=== PATIENT | male | born 1980 | race Caucasian/White ===

== ENCOUNTER 2023-12-26 17:42 | Emergency (ER) | payer MEDICAID ==
[~2023-12-26] VITALS: Ht 175.3 cm; Wt 70.0 kg
[2023-12-26 18:31] VITALS: O2SAT 100
[2023-12-26 19:28] LABS: HEMATOCRIT. 51.8 % (42.0-52.0); HEMOGLOBIN. 16.8 g/dL (14.0-18.0); MEAN CORPUSCULAR HEMOGLOBIN 29.1 pg (28.0-32.0); MEAN CORPUSCULAR HGB CONC 32.5 g/dL (31.0-37.0); MEAN CORPUSCULAR VOLUME 89.6 fL (80.0-94.0); MEAN PLATELET VOLUME 10.9 fl (7.4-10.4); PLATELET 191 x1000/uL (130-400); RED BLOOD CELL COUNT 5.78 mill/uL (4.7-6.1); WHITE BLOOD COUNT 27.4 x1000/uL (4.5-11.0)
[2023-12-26 19:31] LABS: DIFFERENTIAL COMMENT 1
[2023-12-26 19:33] LABS: CHLORIDE 91 mEq/L (98-107); POTASSIUM 3.9 mEq/L (3.5-5.1); SODIUM 137 mEq/L (136-145)
[2023-12-26 19:35] LABS: CARBON DIOXIDE 30 mEq/L (21-32)
[2023-12-26 19:36] LABS: CALCIUM 11.8 mg/dL (8.7-10.4)
[2023-12-26 19:40] LABS: GLUCOSE 147 mg/dL (70-105)
[2023-12-26 19:41] LABS: UREA NITROGEN BLOOD 38 mg/dL (9-23)
[2023-12-26 19:42] LABS: ALANINE AMINOTRANSFERASE 38 IU/L (10-49); ASPARTATE AMINOTRANSFERASE 76 IU/L (<34)
[2023-12-26 19:43] LABS: BILIRUBIN DIRECT 0.5 mg/dL (<=3.0); BILIRUBIN TOTAL 1.6 mg/dL (0.1-1.0); PROTEIN TOTAL 9.6 g/dL (6.0-8.3)
[2023-12-26 19:50] LABS: PLATELET ESTIMATE NORMAL
[2023-12-26 19:53] LABS: CREATININE 5.6 mg/dL (0.6-1.3)
[2023-12-26] MEDS: ONDANSETRON HCL 4MG/2ML INJ IV ONE (21:51)
[2023-12-26] MEDS: CEFTRIAXONE 1GM/50ML 50 ML IV NR (21:57)
[2023-12-26 22:33] VITALS: BP 114/79; PULSE 78; RESP 16; TEMP 98
[2023-12-26 23:02] LABS: TROPONIN I HIGH SENSITIVITY 387 ng/L (3.0-53)
[2023-12-26 23:19] LABS: HEMATOCRIT 50.5 % (42.0-52.0); MEAN CORPUSCULAR HEMOGLOBIN 29.8 pg (28.0-32.0); MEAN CORPUSCULAR HGB CONC 33.6 g/dL (31.0-37.0); MEAN CORPUSCULAR VOLUME 88.6 fL (80.0-94.0); PLATELET 168 x1000/uL (130-400); RED CELL DISTRIBUTION WIDTH 13.9 % (11.6-14.6); WHITE BLOOD COUNT 24.4 x1000/uL (4.5-11.0)
[2023-12-26] MEDS: AZITHROMYCIN 500MG/250ML 250 ML IV SCH (23:52)
== END 2023-12-27 00:50 | disposition left against medical advice (07) ==
LOC: ER 17:42 → EDBEDREQTM 23:09 → EDBEDREQ 23:09 → ER 12-27 00:50
DX: D72.829 Elevated white blood cell count, unspecified (principal)
CPT/HCPCS: 80076; 80048; 83690; 85027; 85025; 84484; 36415; 71045; 93005; 96367; 96365; 96375; 99285; J0456; J0696; J2405; Z7610 ×2

== ENCOUNTER 2024-04-22 01:01 | Emergency (ER) | payer MEDICAID ==
[~2024-04-22] VITALS: Ht 177.8 cm; Wt 69.0 kg
[2024-04-22] MEDS ORDERED: PANTOPRAZOLE SODIUM 40 MG/VIAL IV STA (01:09)
[2024-04-22] MEDS ORDERED: ONDANSETRON HCL 4MG/2ML INJ IV STA (01:09)
[2024-04-22] MEDS ORDERED: SODIUM CHLORIDE 0.9% 1,000 ML IV ONE (01:15)
[2024-04-22] MEDS ORDERED: KETOROLAC 15MG/ML VIAL IV ONE (01:15)
[2024-04-22 01:16] VITALS: BP 133/77; PULSE 71; RESP 16; TEMP 97.7; O2SAT 99
[2024-04-22 02:16] LABS: PROTHROMBIN TIME 10.7 sec (9.6-11.0)
[2024-04-22 02:34] LABS: HEMATOCRIT. 43.3 % (42.0-52.0); HEMOGLOBIN. 14.4 g/dL (14.0-18.0); MEAN CORPUSCULAR HEMOGLOBIN 30.8 pg (28.0-32.0); MEAN CORPUSCULAR HGB CONC 33.3 g/dL (31.0-37.0); MEAN CORPUSCULAR VOLUME 92.5 fL (80.0-94.0); PLATELET 159 x1000/uL (130-400); RED BLOOD CELL COUNT 4.68 mill/uL (4.7-6.1); RED CELL DISTRIBUTION WIDTH 13.1 % (11.6-14.6); WHITE BLOOD COUNT 17.4 x1000/uL (4.5-11.0)
[2024-04-22 02:47] LABS: CHLORIDE 105 mEq/L (98-107); POTASSIUM 3.7 mEq/L (3.5-5.1); SODIUM 139 mEq/L (136-145)
[2024-04-22 02:48] LABS: CALCIUM 10.4 mg/dL (8.7-10.4); CARBON DIOXIDE 23 mEq/L (21-32)
[2024-04-22 02:53] LABS: CREATININE 1.3 mg/dL (0.6-1.3); GLUCOSE 125 mg/dL (70-105); UREA NITROGEN BLOOD 17 mg/dL (9-23)
[2024-04-22 02:55] LABS: ALANINE AMINOTRANSFERASE 15 IU/L (10-49); ALBUMIN 5.1 g/dL (3.2-4.8); ASPARTATE AMINOTRANSFERASE 25 IU/L (<34); BILIRUBIN DIRECT 0.3 mg/dL (<=3.0); BILIRUBIN TOTAL 1.1 mg/dL (0.1-1.0); PROTEIN TOTAL 7.6 g/dL (6.0-8.3)
[2024-04-22 03:40] LABS: DIFFERENTIAL COMMENT 1
[2024-04-22 03:43] LABS: ETHANOL BLOOD < 10 mg/dL (<10)
[2024-04-22 10:43] LABS: PLATELET ESTIMATE NORMAL
== END 2024-04-22 02:15 | disposition left against medical advice (07) ==
LOC: ER 01:11
DX: R10.10 Upper abdominal pain, unspecified (principal); R11.2 Nausea with vomiting, unspecified; Z00.00 Encounter for general adult medical examination without abnormal findings
CPT/HCPCS: 80076; 80048; 80320; 83690; 85025; 85610; 36415; 71045; 93005; 99285; J7030; G0480

== ENCOUNTER 2024-04-22 03:15 | Emergency (ER) | payer MEDICAID ==
[~2024-04-22] VITALS: Ht 167.6 cm; Wt 56.0 kg
[2024-04-22] MEDS ORDERED: MAGNESIUM/ALUMINUM HYDROXIDE/SIMETHICONE 30ML UDC PO STA (03:20)
[2024-04-22] MEDS ORDERED: KETOROLAC 30MG/ML VIAL IV NR (03:20)
[2024-04-22] MEDS ORDERED: PANTOPRAZOLE SODIUM 40 MG/VIAL IV STA (03:20)
[2024-04-22] MEDS ORDERED: ONDANSETRON HCL 4MG/2ML INJ IV STA (03:20)
[2024-04-22] MEDS ORDERED: MAGNESIUM/ALUMINUM HYDROXIDE/SIMETHICONE 30ML UDC PO NR (03:30)
[2024-04-22] MEDS ORDERED: PANTOPRAZOLE SODIUM 40 MG/VIAL IV NR (03:30)
[2024-04-22] MEDS ORDERED: SODIUM CHLORIDE 0.9% 1,000 ML IV ONE (03:30)
[2024-04-22] MEDS ORDERED: ONDANSETRON HCL 4MG/2ML INJ IV NR (03:30)
[2024-04-22 03:54] VITALS: BP 120/52; PULSE 50; RESP 14; TEMP 98.2; O2SAT 100
[2024-04-22 04:13] LABS: HEMATOCRIT. 43.8 % (42.0-52.0); HEMOGLOBIN. 14.5 g/dL (14.0-18.0); MEAN CORPUSCULAR HEMOGLOBIN 30.6 pg (28.0-32.0); MEAN CORPUSCULAR HGB CONC 33.1 g/dL (31.0-37.0); MEAN CORPUSCULAR VOLUME 92.4 fL (80.0-94.0); MEAN PLATELET VOLUME 10.2 fl (7.4-10.4); PLATELET 148 x1000/uL (130-400); RED BLOOD CELL COUNT 4.74 mill/uL (4.7-6.1); RED CELL DISTRIBUTION WIDTH 13.3 % (11.6-14.6); WHITE BLOOD COUNT 16.3 x1000/uL (4.5-11.0)
[2024-04-22 04:24] LABS: DIFFERENTIAL COMMENT 1
[2024-04-22 04:25] LABS: CARBON DIOXIDE 19 mEq/L (21-32); CHLORIDE 107 mEq/L (98-107); PROTHROMBIN TIME 10.9 sec (9.6-11.0); SODIUM 139 mEq/L (136-145)
[2024-04-22 04:26] LABS: CALCIUM 10.5 mg/dL (8.7-10.4)
[2024-04-22 04:30] LABS: CREATININE 1.2 mg/dL (0.6-1.3)
[2024-04-22 04:31] LABS: GLUCOSE 160 mg/dL (70-105); UREA NITROGEN BLOOD 18 mg/dL (9-23)
[2024-04-22 04:32] LABS: ALANINE AMINOTRANSFERASE 16 IU/L (10-49); ALBUMIN 5.3 g/dL (3.2-4.8); ASPARTATE AMINOTRANSFERASE 26 IU/L (<34)
[2024-04-22 04:33] LABS: BILIRUBIN DIRECT 0.3 mg/dL (<=3.0); BILIRUBIN TOTAL 1.1 mg/dL (0.1-1.0); PROTEIN TOTAL 8.1 g/dL (6.0-8.3)
[2024-04-22 04:34] LABS: ETHANOL BLOOD < 10 mg/dL (<10)
[2024-04-22 10:56] LABS: PLATELET ESTIMATE SLIGHTLY DECREASED
== END 2024-04-22 07:38 | disposition left against medical advice (07) ==
LOC: ER 03:15
DX: R11.2 Nausea with vomiting, unspecified (principal)
CPT/HCPCS: 36415; 76705; 80048; 80076; 80320; 85025; 99291; G0480